=== PATIENT | female | born 1970 | race Caucasian/White ===

== ENCOUNTER 2018-09-13 13:39 | Emergency (ER) | payer OTHER ==
[~2018-09-13] VITALS: Ht 162.6 cm; Wt 90.7 kg
[~2018-09-13 13:39] MED LIST: FLEXERIL PO; NORCO 10-325 T1 EACH PO; PREDNISONE 20 M20 M1 PO
[2018-09-13 14:01] LABS: URINE BILIRUBIN NEGATIVE (Negative); URINE BLOOD NEGATIVE (Negative); URINE CLARITY CLEAR; URINE COLOR YELLOW; URINE GLUCOSE-RANDOM NEGATIVE (Negative); URINE KETONES 1+ (Negative); URINE LEUKOCYTES-REFLEX NEGATIVE (Negative); URINE NITRITE-REFLEX NEGATIVE (Negative); URINE PROTEIN TRACE (Negative); URINE UROBILINOGEN 0.2 E.U./dl (0.2-1.0)
[2018-09-13] MEDS ORDERED: SERTRALINE HCL50 MG PO (14:06)
[2018-09-13] MEDS ORDERED: LISINOPRIL40 MG PO (14:07)
[2018-09-13] MEDS ORDERED: ZOCOR40 MG PO (14:07)
[2018-09-13] MEDS ORDERED: SYNTHROID125 MC1 PO (14:07)
[2018-09-13] MEDS ORDERED: PREVACID30 M2 PO (14:08)
[2018-09-13] MEDS ORDERED: MOBIC7.5 MG PO (14:08)
[2018-09-13 14:18] LABS: ABSOLUTE MONOCYTES 0.5 thou/uL (0.0-1.2); ABSOLUTE NEUTROPHILS 6.2 thou/uL (1.6-8.1); BASOPHILS 0.2 %; HEMATOCRIT 36.4 % (37.0-47.0); HEMOGLOBIN 12.6 gm/dL (12.0-15.0); MCH 29.3 pg (26.0-34.0); MCHC 34.6 g/dL (28.0-37.0); MCV 84.8 fL (80.0-100.0); MONOCYTES 6.1 %; MPV 7.2 fl. (7.2-11.1); NUCLEATED RBCS 0 /100WBC; PLATELET COUNT* 252 thou/uL (150-400); POLYS 70.7 %; RDW-CV 12.6 % (10.5-14.5); WBC 8.8 thou/uL (4.0-11.0)
[2018-09-13 14:27] LABS: ANION GAP 13 mmol/L (7-16); BUN 20 mg/dL (7-18); CALCIUM 8.9 mg/dL (8.5-10.1); CHLORIDE 101 mmol/L (98-107); CO2 24 mmol/L (21-32); CREATININE 1.1 mg/dL (0.6-1.3); GLUCOSE 94 mg/dL (70-99); POTASSIUM 3.8 mmol/L (3.5-5.1); SODIUM 138 mmol/L (136-145)
[2018-09-13 14:36] LABS: ALBUMIN 3.8 g/dL (3.4-5.0); ALKALINE PHOSPHATASE 63 U/L (46-116); SGOT 22 U/L (15-37); SGPT 35 U/L (30-65); TOTAL BILIRUBIN 0.4 mg/dL (<0.1-1.0); TOTAL PROTEIN 7.4 g/dL (6.4-8.2); TROPONIN-I LEVEL <0.06 ng/mL (<0.06)
[2018-09-13 15:12] VITALS: BP 130/86
--- NOTE | 2018-09-15 12:23 | EKG ---
[place] [address] ELECTROCARDIOGRAM REPORT Name: DARIUSZ PIÑA Room: [facility]#: [id number] Admission: 09/13/18 Attend Phys: Discharge: 09/13/18 Date of : 74 Report #: [id number] THIS REPORT FOR: //name// [facility] ED Test Date: 2018-09-13 Test Time: 13:45:59 Pat Name: DARIUSZ PIÑA Department: Room: Gender: F [employer]: : 1970 Requested By: Delmy Merino Order Number: [id number] MD: Dmitri Meza Measurements Intervals Wright Rate: 88 P: 39 RI: 159 QRS: 76 QRSD: 89 T: 55 QT: 422 QTc: 511 Interpretive Statements Sinus rhythm Borderline abnrm T, anterolateral leads Prolonged QT interval No previous ECG available for comparison Electronically Signed On 09-15-2018 12:23:03 CDT by Dmitri Meza [email or web address] <ELECTRONICALLY SIGNED> By: Dmitri Meza MD, [facility] 09/15/18 1223 1345 1345 Dmitri Meza MD, FACC /EPI
== END 2018-09-13 15:12 | disposition home or self-care (01) ==
LOC: M.ERS 13:39
PROVIDERS: Nurse Practitioner Family
DX: E86.0 Dehydration (principal); I95.9 Hypotension, unspecified; I10 Essential (primary) hypertension; E78.5 Hyperlipidemia, unspecified; E03.9 Hypothyroidism, unspecified; Z90.49 Acquired absence of other specified parts of digestive tract